=== PATIENT | male | born 1950 | race Caucasian/White ===

== ENCOUNTER 2017-03-08 18:10 | Emergency (ER) | payer MEDICARE, BC ==
[2017-03-08 18:48] LABS: Hematocrit 40.3 % (42.0-52.0); Hemoglobin 13.9 gm/dL (13.5-18.0); Mean Cell Volume 86.5 fl (78-100); Mean Corpuscular Hemoglobin 29.8 pg (27-31); Mean Corpuscular Hgb Conc 34.5 g/dl (32-36); Mean Platelet Volume 9.9 fl (6.0-9.5); Neutrophil # 9.8 K/mm3 (1.3-6.0); Neutrophil % 89.5 % (42-75.0); Platelet Count 192 K/mm3 (150-450); Red Blood Count 4.66 M/mm3 (4.7-6.0); Red Cell Distribution Width 12.8 % (11.5-14.0); White Blood Count 10.9 K/mm3 (4.0-10.5)
[2017-03-08 18:59] LABS: Prothrombin Time (Patient) 11.2 Seconds (9.4-11.4)
--- NOTE | 2017-03-08 19:01 | ERNOTE ---
Dizziness ER Record Presenting Symptoms: dizziness Time Seen by Provider: 03/08/17 18:50 Source: patient Exam Limitations: no limitations Immunizations: IMMUNIZATION HX Immunizations Up to Date Yes Allergies/Adverse Reactions: Allergies Allergy/AdvReac Type Severity Reaction Status Date / Time No Known Allergies Allergy Unverified 03/08/17 18:29 Home Medications: HOME MEDICATIONS Levothyroxine Sodium [Synthroid] 137 mcg PO DAILY 03/08/17 [Last Taken Unknown] Multivitamin [Multivitamins] 1 each PO DAILY 03/08/17 [Last Taken Unknown] - History of Present Illness Narrative: Here for dizziness which started two days ago and has progressively gotten worse till today. Today at 1400 pt started getting a headache in the right eyebrow area in addition to photophobia and nausea which all started at around 1400 today. He is generally healthy and denies any trauma to head Review of Systems - Review of Systems Constitutional: Present: no symptoms reported EYE: Present: see HPI ENT: Present: no symptoms reported Respiratory: Present: no symptoms reported Cardiology: Present: no symptoms reported Gastrointestinal/Abdominal: Present: no symptoms reported Genitourinary: Present: no symptoms reported Musculoskeletal: Present: other - complains of headache and neck pain Neurological: Present: headache, dizziness/light-headedness Psych: Present: no symptoms reported - Patient's Past Medical History Patient History - Medical: Hypothyroidism Patient History - Cardiac/Respiratory: No pertinent hx Patient History - Cancer: Prostate Patient History - Surgical Procedures: Back Surgery - Social History Living Situations: home Psych History: No pertinent hx Smoking Status: Never smoker Alcohol Use: none Drug Use: none - Immunizations Immunizations Up to Date: Yes Physical Exam - Physical Exam General Appearance: Present: wd/wn, alert, no apparent distress Eye Exam: Normal inspection: bilateral, PERRL: bilateral, EOMI: bilateral, Other : bilateral - no nystagmus noted Ears, Nose, Throat: Present: normal ENT inspection, normal pharynx Neck: Present: normal inspection, nontender, supple, full range of motion. Absent: carotid bruit Respiratory: Present: no respiratory distress, normal breath sounds, no accessory muscle use, chest nontender, lungs clear Cardiovascular/Chest: Present: regular rate, rhythm, no murmur, normal peripheral pulses Gastrointestinal/Abdominal: Present: normal bowel sounds, nontender, nondistended, soft, no organomegaly Back Exam: Present: normal inspection, no vertebral tenderness Extremity Exam: Present: normal inspection, normal range of motion Neurological Exam: Present: alert, oriented, normal mood/affect, no motor/ sensory deficits ED Progress - Results and Orders Patient's Lab Results:: I have reviewed the patient's lab results. - Vital Signs Patient's Vital Signs:: I have reviewed the patient's vital signs. Vital Signs: Vital Signs 03/08/17 18:25 Temperature 36.8 C Pulse Rate 91 Respiratory 18 Rate Blood Pressure 151/79 O2 Sat by Pulse 96 Oximetry - Progress/Reassessment Chief Complaint: Dizziness - Transfer of Care Physician Sign Out: Lor Lopez Receiving Physician: Lan Del Toro Pending Results: CT/MRI results, Labs Expected Disposition: Discharge Departure Clinical Impression: Dizziness - Departure Referrals: Linda Banegas MD [Primary Care Provider] -
[2017-03-08 19:06] LABS: Anion Gap 16.1 mmol/L (6.8-13.8); BUN/Creatinine Ratio 21.4 (9.0-21.6); Ca. Corrected For Albumin 8.2 mg/dL (8.4-10.2); Calcium * 8.5 mg/dL (7.9-10.9); Carbon Dioxide 26.8 mmol/L (24-32.6); INR 1.08 INR (0.90-1.10); Partial Thrombolplastin Time 22.9 Seconds (24-32); Potassium 3.9 mmol/L (3.4-4.6); Total Protein 7.1 gm/dL (6.2-8.2)
[2017-03-08 19:08] LABS: Troponin I 0.019 ng/ml (0.00-0.10)
[2017-03-08] MEDS ORDERED: MECLIZINE HCL 25 MG TABLET PO ONE (19:43)
[2017-03-08] MEDS ORDERED: MECLIZINE HCL 25 MG TABLET ONE (19:47)
[2017-03-08 19:51] LABS: Urine Appearance Clear; Urine Bilirubin Negative (NEGATIVE); Urine Blood Negative /ul (NEGATIVE); Urine Color Yellow; Urine Ketone 5 mg/dL (NEGATIVE); Urine Nitrite Negative (NEGATIVE); Urine Protein Negative (NEGATIVE); Urine Specific Gravity 1.025 SP.GR. (1.005-1.030); Urine Urobilinogen Normal (NORMAL)
[2017-03-08 19:52] LABS: Urine Bacteria None Seen; Urine RBC None Seen /hpf (0-5); Urine WBC 0-5 /hpf (0-5)
[2017-03-08 19:53] LABS: Hemoglobin A1C 5.8 % (4.00-6.0)
[2017-03-08 20:38] VITALS: BP 139/79
== END 2017-03-08 20:36 | disposition home or self-care (01) ==
LOC: ER 18:10
DX: R42 Dizziness and giddiness (principal); Z85.46 Personal history of malignant neoplasm of prostate; E03.9 Hypothyroidism, unspecified